=== PATIENT | male | born 1970 | race Caucasian/White ===

== ENCOUNTER → 2016-04-24 | Outpatient (CLI) | payer OTHER ==
[~2016-04-24] MED LIST: ATV/1 SL; MILKPOW PO; MISCCAP55 PO; MULT-281; OMEG10002 PO; RANI150T3 PO; TADA10TA PO
== END | disposition home or self-care (01) ==
LOC: C.LABBC 12:42
PROVIDERS: ATTEND Specialist
DX: N46.9 Male infertility, unspecified (principal)

== ENCOUNTER → 2017-02-26 | Outpatient (CLI) | payer OTHER ==
--- NOTE | 2017-02-26 17:35 | DIAGNOSTIC IMAGING REPORT ---
MRI OF THE RIGHT ELBOW WITHOUT IV CONTRAST CLINICAL HISTORY: Chronic intermittent right elbow pain, worsening over the past year. COMPARISON STUDY: No priors. TECHNIQUE: MRI of the right elbow is performed utilizing various T1 and T2-weighted sequences in the axial, sagittal, and coronal planes. IV contrast was not administered for this examination. Note that interpretation is suboptimal without plain film correlate. FINDINGS: Normal marrow signal intensity is preserved throughout the bony structures. There is no MRI evidence of fracture. No joint effusion is seen. The biceps tendon and the triceps tendon at its insertion are maintained. The radial collateral ligament and the ulnar collateral alignment appear intact. There is mild tendinopathy seen involving the common flexor and common extensor tendons at the humeral insertion with minimal surrounding edema. This is slightly greater medially than laterally. No significant tendinous tear is seen. Tiny marginal osteophytes are noted. The regional musculature is normal in bulk and signal intensity. No space-occupying lesion is suggested. IMPRESSION: 1. No bony abnormality is seen in the right elbow. 2. Findings suggest mild medial and lateral epicondylitis, greatest medially. Clinical correlation will be required. Dictated: 02/26/2017 4:40 PM Transcribed: 02/26/2017 5:34 PM [email or web address] Electronically signed by: Stanley Forman M.D. 02/26/2017 5:36 PM Dictated Date/Time: 02/26/2017 4:40 PM
== END | disposition home or self-care (01) ==
LOC: C.MRIBC 15:35
PROVIDERS: ATTEND Orthopaedic Surgery
DX: M25.521 Pain in right elbow (principal)

== ENCOUNTER 2021-09-27 13:51 | Inpatient (IN) ==
[2021-09-27 14:43] LABS: Hematocrit (blood only) 42.5 % (40.1-51.0); Hemoglobin 15.2 g/dl (14.0-18.0); Mean Corpuscular Hemoglobin 32.1 pg (25.0-34.0); Mean Corpuscular Hgb Conc 35.8 g/dL (32.0-36.0); Mean Corpuscular Volume 89.7 fL (80.0-100.0); Mean Platelet Volume 9.5 fL (9.4-12.4); Platelet Count 139 K/uL (130-400); RDW Coefficient of Variation 12.1 % (11.5-14.5); RDW Standard Deviation 39.8 fL (36.4-46.3); Red Blood Count 4.74 M/uL (4.63-6.08)
[2021-09-27 15:00] LABS: Basophils # (auto) 0.02 K/uL (0-0.2); Basophils % (auto) 0.4 %; Eosinophils # (auto) 0.02 K/uL (0-0.50); Eosinophils % (auto) 0.4 %; Immature Granulocytes # (auto) 0.01 K/uL (0.00-0.02); Immature Granulocytes % (auto) 0.2 %; Lymphocytes # (auto) 0.72 K/uL (1.2-3.4); Lymphocytes % (auto) 14.7 %; Monocytes # (auto) 0.48 K/uL (0.24-0.82); Monocytes % (auto) 9.8 %; Neutrophils # (auto) 3.65 K/uL (1.4-6.5); Neutrophils % (auto) 74.5 %
[2021-09-27 15:16] LABS: Albumin Globulin Ratio 1.5 (0.9-2); BUN Creatinine Ratio 15.6 (10-20); Calcium 8.9 mg/dl (8.5-10.1); Creatinine Clr Calc Pharmacy 105.7 ml/min; Est GFR (African American) 115.8 ml/min; Est GFR (Non-African American) 99.9 ml/min; Globulin 2.6 gm/dl (2.5-4.0); Potassium 3.6 mmol/L (3.5-5.1); Total Protein 6.6 gm/dl (6.0-8.3)
[2021-09-27] MEDS ORDERED: SODIUM CHLORIDE 0.9% 1000ML 1,000 ML IV ONE (16:26)
[2021-09-27] MEDS ORDERED: KETOROLAC TROMETHAMINE 15 MG/ML VIAL IV ONE (16:26)
[2021-09-27] MEDS ORDERED: PROMETHAZINE 12.5 MG/50.5 ML BAG IV STA (16:26)
[2021-09-27] MEDS ORDERED: diphenhydrAMINE 50 MG/ML VIAL IV STA (16:31)
--- NOTE | 2021-09-27 16:34 | Emergency Department Note ---
Impression & Plan Aseptic meningitis, Acute intractable headache ED Provider Note NAME: PK GORDON AGE: 51 SEX: M : 1970 ARRIVES VIA: Walk-In INFORMANT: Patient, ED PROVIDER(S): Santiago Sauceda DO CHIEF COMPLAINT: Fever HPI: The patient is a 51-year-old male who presented to the emergency department for an evaluation of headache. The patient states he has a frontal headache that goes into the back of his head. He states this is been ongoing and worsening since yesterday morning. He states it was not an acute thunderclap headache. He also has noticed a headache. His significant other presented with him and states he had a fever of 103 last evening. He has been taking NSAIDs with only minimal relief of his headache. He has noticed some improvement of his fever. He denies having any cough. He denies having any dysuria or frequency. He denies having any back pain. He does complain of severe headache because of the fever he called his doctor and was referred to the emergency department for further evaluation. The patient also has a daughter who is currently suffering with coxsackievirus. The patient also reports a rash over his trunk which is erythematous in nature. He denies having any vesicles or sore throat. He took a COVID test this morning which was negative. ROS: See above HPI for pertinent positives & negatives. A total of 10 systems reviewed and were otherwise negative. PAST MEDICAL HISTORY: See Below PAST SURGICAL HISTORY: See Below FAMILY HISTORY: See Below SOCIAL HISTORY: See Below HOME MEDICATIONS: See Below ALLERGIES: See Below VITALS: See Below PHYSICAL EXAMINATION: GENERAL: Patient is awake and alert. He is uncomfortable appearing. He appears to be in pain. EYES: The conjunctivae are clearinjected bilaterally. The pupils are round and reactive. EARS, NOSE, MOUTH AND THROAT: The nose is without any evidence of any deformity. Mucous membranes are moist. There is no erythema or vesicles noted in the oropharynx. NECK: The neck is nontender and supple. RESPIRATORY: Normal respiratory effort is noted there is no evidence of wheezing rhonchi or rales CARDIOVASCULAR: Regular rate and rhythm noted there no murmurs rubs or gallops normal S1 normal S2. GASTROINTESTINAL: The abdomen is soft. Abdomen is nontender. MUSCULOSKELETAL/EXTREMITIES: There is no evidence of gross deformity full range of motion is noted in the hips and shoulders. SKIN: There is a blanching rash noted over the entire trunk. It is not raised or palpable. NEUROLOGIC: Patient is awake alert and oriented x3 strength is symmetric patellar reflexes are 2+ bilaterally MEDICAL DECISION MAKING: The patient is a 51-year-old male who presented to the emergency department for an evaluation of headache and fever. The patient was exposed to coxsackievirus by his daughter. He started noticing fever and headache. The patient's head ache was very severe and he was treated with IV pain medication in the emergency department. He was reevaluated multiple times. The patient did have a lumbar puncture to evaluate for meningitis. His CSF did show an elevation in the white blood cell count. He was treated with IV fluids. I discussed the patient's condition with the on-call [facility] hospitalist group. They have agreed to evaluate the patient in the emergency department for further management and disposition. Likely this appears to be consistent with aseptic meningitis however given the patient's intractable headache I do feel he would do well managed as an inpatient. Triage Nursing notes reviewed. Prior medical records reviewed Vital Signs: reviewed and remarkable for no significant abnormalities Differential diagnosis: Migraine headache, meningitis, sinusitis, CO exposure, ICH, SAH, infection, tumor, headache, sinus thrombosis, arterial dissection, as well as other pathologies. ER treatment provided: See below Diagnostics interpreted by me: ECG: EKG was obtained in the emergency department. My interpretation is normal sinus rhythm at 71 bpm. There is no ectopy. There is no acute ST segment abnormalities noted. No previous tracing was available. Cardiac Monitoring: An order was placed for continuous cardiac monitoring. The monitor shows a rate of 63 bpm with sinus rhythm. Laboratory studies: As stated above and show below. Imaging studies: See below Consultation(s): I discussed this case with Dr. Amaya who is on-call for the [facility] hospitalist group. ED COURSE: Procedures: Lumbar Puncture Indication: Fever e and headache. Verbal consent was obtained after the risks and benefits were explained, includ ing but not limited to headache, bleeding/clotting, scarring, infection, pain, and bone/joint/nerve damage. At this time, the risks of the procedure are less than the risks of NOT performing the procedure. A time out was taken and the correct patient and site identified. The patient was placed in the seated position and the back was prepped with betadine and draped in the standard fashion. The L3 intervertebral space was identified, anesthetized locally with 1% lidocaine without epinephrine, and the spinal needle was inserted through the skin with the bevel parallel to the dural fibers. The needle was carefully advanced into the lumbar cistern and 4 tubes of clear CSF was obtained. The stylet was replaced and the needle was removed. A bandaid was placed and the patient was placed in the supine position. The patient tolerated the procedure well and there were no complications. Critical Care: None Past Med/Surg History Medical History Acid reflux History of colon polyps TMJ disease Surgical History H/O foot surgery 2014. Dr Atkinson History of arthroscopy of left knee History of colonoscopy History of facial surgery RECONSTRUCTION AFTER SKIING INJURY History of wisdom tooth extraction Nausea and vomiting after administration of anesthetic agent Status post orchiopexy Family History Father Colon cancer Diabetes Malignant neoplasm of bladder Nephrolithiasis Other No family history of adverse response to anesthesia Denies family history of Ovarian cancer Prostate cancer Breast cancer Lung cancer Social History Smoking Status: Never smoker Second Hand Exposure: No; Hx Alcohol Use: Yes Alcohol type: beer, wine and hard liquor Hx Substance Use: No Preferred Language: Arabic Communication Ability: Effective Magazine Hand Required: No Beliefs That Will Affect Care: None marital status: Current Living Situation: Family Current Living Situation Comment: Lives with and children Feels Safe at Home: No Is there a partner from a previous relationship who is making you feel unsafe now?: No Childhood Exposure to Second-Hand Smoke: No Assistive Devices: None Allergies Allergies Allergy/AdvReac Type Severity Reaction Status Date / Time No Known Allergies Allergy Unknown Verified 09/27/21 17:26 Home Meds Home Medications Medication Instructions Recorded Confirmed tadalafil 5 mg tablet 5 mg PO DAILY 08/12/19 09/27/21 ibuprofen 200 mg tablet (Advil) 800 mg PO .Q5-6HRS PRN Fever Or 09/27/21 09/27/21 Pain Previous Rx's Medication Instructions Recorded benzonatate 200 mg capsule 200 mg PO TID PRN cough #30 caps 06/08/21 esomeprazole magnesium 20 mg 20 mg PO DAILY PRN Acid Reflux #30 06/08/21 capsule,delayed release (Nexium) caps lorazepam 1 mg tablet (Ativan) 1 mg PO BID PRN sleep #20 tabs 06/08/21 ondansetron 4 mg disintegrating 4 mg PO Q12H PRN nausea and 09/28/21 tablet vomiting 10 days #20 tabs sodium di- and 2 tab PO Q4H #6 tabs 09/28/21 monophosphate-potassium phos monobasic 250 mg tablet (Phospha 250 Neutral) Results & Data (ED) Vital Signs Vital Signs - 24 hr 09/27/21 16:48 09/27/21 17:14 09/27/21 19:58 Temperature 37.3 C Temperature Source Oral Pulse Rate 60 Pulse Rate [Finger] 59 L 75 Pulse Rhythm [Finger] Regular Pulse Strength [Finger] Normal Respiratory Rate 16 16 18 Respiratory Effort / Characteristics Non-Labored Spontaneous Labored Respiratory Depth Normal Blood Pressure [Left Arm] 146/94 H 132/78 Blood Pressure Mean [Left Arm] 111 96 Pulse Oximetry 95 100 98 Oxygen Delivery Method Room Air Room Air Home Medications Current Medication List: was personally reviewed by me Laboratory Data Attestation: I reviewed the patient's lab results. Result diagrams: 09/28/21 10:23 09/28/21 10:23 Lab Results 09/27/21 09/27/21 09/27/21 Range/Units 14:16 14:16 14:16 WBC 4.90 (4.8-10.8) K/ul RBC 4.74 (4.63-6.08) M/uL Hgb 15.2 (14.0-18.0) g/dl Hct 42.5 (40.1-51.0) % MCV 89.7 (80.0-100.0) fL MCH 32.1 (25.0-34.0) pg MCHC 35.8 (32.0-36.0) g/dL RDW Std Deviation 39.8 (36.4-46.3) fL RDW Coeff of Bryan 12.1 (11.5-14.5) % Plt Count 139 (130-400) K/uL MPV 9.5 (9.4-12.4) fL Immature Gran % (Auto) 0.2 % Neut % (Auto) 74.5 % Lymph % (Auto) 14.7 % Summit % (Auto) 9.8 % Eos % (Auto) 0.4 % Baso % (Auto) 0.4 % Neut # (Auto) 3.65 (1.4-6.5) K/uL Lymph # (Auto) 0.72 L (1.2-3.4) K/uL Summit # (Auto) 0.48 (0.24-0.82) K/uL Eos # (Auto) 0.02 (0-0.50) K/uL Baso # (Auto) 0.02 (0-0.2) K/uL Immature Gran # (Auto) 0.01 (0.00-0.02) K/uL Sodium 139 (136-145) mmol/L Potassium 3.6 (3.5-5.1) mmol/L Chloride 105 (98-107) mmol/L Carbon Dioxide 27 (21-32) mmol/L Anion Gap 7 (3-11) BUN 14 (6-23) mg/dl Creatinine 0.90 (0.6-1.4) mg/dl Est Cr Clr Drug Dosing 105.7 ml/min Est GFR ( Amer) 115.8 ml/min Est GFR (Non-Af Amer) 99.9 ml/min BUN/Creatinine Ratio 15.6 (10-20) Glucose 118 H (70-99(Fasting)) mg/dl Calcium 8.9 (8.5-10.1) mg/dl Total Bilirubin 1.0 (0.2-1.0) mg/dl AST 30 (13-39) U/L ALT 33 (7-52) U/L Alkaline Phosphatase 80 (34-104) U/L Total Protein 6.6 (6.0-8.3) gm/dl Albumin 4.0 (3.4-5.0) gm/dl Globulin 2.6 (2.5-4.0) gm/dl Albumin/Globulin Ratio 1.5 (0.9-2) Urine Color Urine Appearance (Clear) Urine pH (4.5-7.5) Ur Specific Perry (1.000-1.030) Urine Protein (Negative) Urine Glucose (UA) (Negative) Urine Ketones (Negative) Urine Blood (Negative) Urine Nitrite (Negative) Urine Bilirubin (Negative) Urine Urobilinogen (Negative) Ur Leukocyte Esterase (Negative) Fluid Comment CSF Appearance CSF Color Xanthrochromic CSF WBC (0-5) /uL CSF RBC (0-) /uL CSF Cell Count Tube # CSF Mononuclear WBCs % CSF Polynuclear WBCs % CSF Chemistry Tube # CSF Glucose (40-70) mg/dl CSF Total Protein (15-45) mg/dl Lyme Disease IgG Ab Negative (Negative) Lyme Disease IgM Ab Negative (Negative) SARS-CoV-2, RNA, NAAT (NEGATIVE) 09/27/21 09/27/21 09/27/21 Range/Units 17:04 17:47 17:47 WBC (4.8-10.8) K/ul RBC (4.63-6.08) M/uL Hgb (14.0-18.0) g/dl Hct (40.1-51.0) % MCV (80.0-100.0) fL MCH (25.0-34.0) pg MCHC (32.0-36.0) g/dL RDW Std Deviation (36.4-46.3) fL RDW Coeff of Bryan (11.5-14.5) % Plt Count (130-400) K/uL MPV (9.4-12.4) fL Immature Gran % (Auto) % Neut % (Auto) % Lymph % (Auto) % Summit % (Auto) % Eos % (Auto) % Baso % (Auto) % Neut # (Auto) (1.4-6.5) K/uL Lymph # (Auto) (1.2-3.4) K/uL Summit # (Auto) (0.24-0.82) K/uL Eos # (Auto) (0-0.50) K/uL Baso # (Auto) (0-0.2) K/uL Immature Gran # (Auto) (0.00-0.02) K/uL Sodium (136-145) mmol/L Potassium (3.5-5.1) mmol/L Chloride (98-107) mmol/L Carbon Dioxide (21-32) mmol/L Anion Gap (3-11) BUN (6-23) mg/dl Creatinine (0.6-1.4) mg/dl Est Cr Clr Drug Dosing ml/min Est GFR ( Amer) ml/min Est GFR (Non-Af Amer) ml/min BUN/Creatinine Ratio (10-20) Glucose (70-99(Fasting)) mg/dl Calcium (8.5-10.1) mg/dl Total Bilirubin (0.2-1.0) mg/dl AST (13-39) U/L ALT (7-52) U/L Alkaline Phosphatase (34-104) U/L Total Protein (6.0-8.3) gm/dl Albumin (3.4-5.0) gm/dl Globulin (2.5-4.0) gm/dl Albumin/Globulin Ratio (0.9-2) Urine Color Yellow Urine Appearance Clear (Clear) Urine pH 6.5 (4.5-7.5) Ur Specific Perry 1.024 (1.000-1.030) Urine Protein Negative (Negative) Urine Glucose (UA) Negative (Negative) Urine Ketones 1+ H (Negative) Urine Blood Negative (Negative) Urine Nitrite Negative (Negative) Urine Bilirubin Negative (Negative) Urine Urobilinogen Negative (Negative) Ur Leukocyte Esterase Negative (Negative) Fluid Comment CSF Appearance Clear CSF Color Colorless Xanthrochromic No xanthochromia CSF WBC 32 H* (0-5) /uL CSF RBC 0 (0-) /uL CSF Cell Count Tube # 3 CSF Mononuclear WBCs 47.0 % CSF Polynuclear WBCs 53.0 % CSF Chemistry Tube # 1 CSF Glucose 60 (40-70) mg/dl CSF Total Protein 40.2 (15-45) mg/dl Lyme Disease IgG Ab (Negative) Lyme Disease IgM Ab (Negative) SARS-CoV-2, RNA, NAAT (NEGATIVE) 09/27/21 Range/Units 20:16 WBC (4.8-10.8) K/ul RBC (4.63-6.08) M/uL Hgb (14.0-18.0) g/dl Hct (40.1-51.0) % MCV (80.0-100.0) fL MCH (25.0-34.0) pg MCHC (32.0-36.0) g/dL RDW Std Deviation (36.4-46.3) fL RDW Coeff of Bryan (11.5-14.5) % Plt Count (130-400) K/uL MPV (9.4-12.4) fL Immature Gran % (Auto) % Neut % (Auto) % Lymph % (Auto) % Summit % (Auto) % Eos % (Auto) % Baso % (Auto) % Neut # (Auto) (1.4-6.5) K/uL Lymph # (Auto) (1.2-3.4) K/uL Summit # (Auto) (0.24-0.82) K/uL Eos # (Auto) (0-0.50) K/uL Baso # (Auto) (0-0.2) K/uL Immature Gran # (Auto) (0.00-0.02) K/uL Sodium (136-145) mmol/L Potassium (3.5-5.1) mmol/L Chloride (98-107) mmol/L Carbon Dioxide (21-32) mmol/L Anion Gap (3-11) BUN (6-23) mg/dl Creatinine (0.6-1.4) mg/dl Est Cr Clr Drug Dosing ml/min Est GFR ( Amer) ml/min Est GFR (Non-Af Amer) ml/min BUN/Creatinine Ratio (10-20) Glucose (70-99(Fasting)) mg/dl Calcium (8.5-10.1) mg/dl Total Bilirubin (0.2-1.0) mg/dl AST (13-39) U/L ALT (7-52) U/L Alkaline Phosphatase (34-104) U/L Total Protein (6.0-8.3) gm/dl Albumin (3.4-5.0) gm/dl Globulin (2.5-4.0) gm/dl Albumin/Globulin Ratio (0.9-2) Urine Color Urine Appearance (Clear) Urine pH (4.5-7.5) Ur Specific Perry (1.000-1.030) Urine Protein (Negative) Urine Glucose (UA) (Negative) Urine Ketones (Negative) Urine Blood (Negative) Urine Nitrite (Negative) Urine Bilirubin (Negative) Urine Urobilinogen (Negative) Ur Leukocyte Esterase (Negative) Fluid Comment CSF Appearance CSF Color Xanthrochromic CSF WBC (0-5) /uL CSF RBC (0-) /uL CSF Cell Count Tube # CSF Mononuclear WBCs % CSF Polynuclear WBCs % CSF Chemistry Tube # CSF Glucose (40-70) mg/dl CSF Total Protein (15-45) mg/dl Lyme Disease IgG Ab (Negative) Lyme Disease IgM Ab (Negative) SARS-CoV-2, RNA, NAAT NEGATIVE (NEGATIVE) Administered Medications Discontinued Medications Dexamethasone Sodium Phosphate (DexamethasonePf 10 Mg/Ml Vial) 10 mg IV NOW ONE Stop: 09/27/21 20:05 Last Admin: 09/27/21 20:12 Dose: 10 mg Documented By: JUAN Diphenhydramine HCl (Diphenhydramine 50 Mg/Ml Vial) 25 mg IV NOW STA Stop: 09/27/21 16:32 Last Admin: 09/27/21 16:55 Dose: 25 mg Documented By: MACEY Hydromorphone HCl (Hydromorphone Inj 0.5 Mg/0.5 Ml Syr) 0.5 mg IV NOW STA Stop: 09/27/21 20:05 Last Admin: 09/27/21 20:12 Dose: 0.5 mg Documented By: JUAN Sodium Chloride (Nss 1000ml) 1,000 mls @ 999 mls/hr IV .[id number] ONE Stop: 09/27/21 17:26 Last Infusion: 09/27/21 18:49 Dose: 0 mls/hr Documented By: Admin: 09/27/21 16:34 Dose: 999 mls/hr Documented By: MACEY Promethazine HCl (Phenergan) 12.5 mg in 50.5 mls @ 202 mls/hr IV NOW STA Stop: 09/27/21 16:40 Last Infusion: 09/27/21 18:01 Dose: 0 mls/hr Documented By: Admin: 09/27/21 16:34 Dose: 202 mls/hr Documented By: MACEY Sodium Chloride (Nss 1000ml) 1,000 mls @ 80 mls/hr IV .[id number] LORENA Stop: 09/29/21 02:19 Last Admin: 09/28/21 14:16 Dose: 80 mls/hr Documented By: Infusion: 09/28/21 14:16 Dose: 80 mls/hr Documented By: Admin: 09/28/21 01:57 Dose: 80 mls/hr Documented By: Ketorolac Tromethamine (Ketorolac Tromethamine 15 Mg/Ml Vial) 10 mg IV NOW ONE Stop: 09/27/21 16:27 Last Admin: 09/27/21 16:33 Dose: 10 mg Documented By: MACEY Ketorolac Tromethamine (Ketorolac Tromethamine 15 Mg/Ml Vial) 15 mg IV Q6H PRN PRN Reason: Moderate pain (5-7) Stop: 10/03/21 01:20 Last Admin: 09/28/21 01:54 Dose: 15 mg Documented By: Lidocaine/Epinephrine (Lido/Epinephrine/Sod Bicarb 20 Ml Vial) Confirm Administered Dose 20 ml INFIL .STK-MED ONE Stop: 09/27/21 17:39 Last Admin: 09/27/21 18:01 Dose: 20 ml Documented By: MACEY Melatonin (Melatonin 3 Mg Tab) 3 mg PO HS PRN PRN Reason: Sleep Stop: 10/28/21 01:20 Last Admin: 09/28/21 02:03 Dose: 3 mg Documented By: Morphine Sulfate (Morphine Sulfate 4 Mg/Ml 1 Ml Carp\Vial) 4 mg IV NOW STA Stop: 09/27/21 18:26 Last Admin: 09/27/21 18:29 Dose: 4 mg Documented By: MACEY Ondansetron HCl (Ondansetron Inj 2 Mg/Ml 2 Ml Vial) 4 mg IV NOW STA Stop: 09/27/21 18:26 Last Admin: 09/27/21 18:29 Dose: 4 mg Documented By: MACEY Imaging Data Radiologist's Impression: Head CT 09/27/21 16:26 CT head/brain wo con CLINICAL HISTORY: Headache COMPARISON STUDY: No previous studies for comparison. CT DOSE: 638.56 mGycm TECHNIQUE: Standard CT of the Brain was performed without IV contrast. A dose lowering technique was utilized adhering to the principles of ALARA. FINDINGS: Extraaxial space: There is no evidence for subdural hematoma. There are no extra-axial fluid collections. Ventricles and cisterns: The ventricles are normal in size and configuration. There is no evidence for midline shift or mass effect. Parenchyma: There is no subarachnoid or intraparenchymal hemorrhage. There is no evidence for an acute infarct or cerebral edema. There is homogeneous attenuation of the brain parenchyma. There are no gross mass lesions. Osseous structures: There is no evidence for an acute fracture. The visualized paranasal sinuses are clear. The mastoid air cells are clear bilaterally. Soft tissues: There is no evidence for focal soft tissue swelling. IMPRESSION: 1. No acute intracerebral pathology. ACT 112: Negative or not required by law. Electronically signed by: Ottoniel Hastings M.D. 09/27/2021 4:46 PM Discharge Plan Visit Data Chief Complaint: Fever Stated Complaint: FEVER, REF BY DR, NAUSEA, HEADACHE ED Provider: Santiago Sauceda Discharge Problem: Aseptic meningitis, Acute intractable headache Patient Disposition: Admitted As Inpatient Discharge Instructions Interventions: ED Discharge Assessment Last Done: 09/28/21 00:55
--- NOTE | 2021-09-27 16:48 | CT Scan Report ---
CT head/brain wo con CLINICAL HISTORY: Headache COMPARISON STUDY: No previous studies for comparison. CT DOSE: 638.56 mGycm TECHNIQUE: Standard CT of the Brain was performed without IV contrast. A dose lowering technique was utilized adhering to the principles of ALARA. FINDINGS: Extraaxial space: There is no evidence for subdural hematoma. There are no extra-axial fluid collecti ons. Ventricles and cisterns: The ventricles are normal in size and configuration. There is no evidence fo r midline shift or mass effect. Parenchyma: There is no subarachnoid or intraparenchymal hemorrhage. There is no evidence for an acut e infarct or cerebral edema. There is homogeneous attenuation of the brain parenchyma. There are no g ross mass lesions. Osseous structures: There is no evidence for an acute fracture. The visualized paranasal sinuses are clear. The mastoid air cells are clear bilaterally. Soft tissues: There is no evidence for focal soft tissue swelling. IMPRESSION: 1. No acute intracerebral pathology. ACT 112: Negative or not required by law. Electronically signed by: Ottoniel Hastings M.D. 09/27/2021 4:46 PM
[2021-09-27 17:35] LABS: Appearance Urine Clear (Clear); Bilirubin Urine Negative (Negative); Blood Urine Negative (Negative); Color Urine Yellow; Glucose Urine UA Negative (Negative); Ketones Urine 1+ (Negative); Leukocyte Esterase Urine Negative (Negative); Nitrite Urine Negative (Negative); Protein Urine Negative (Negative); Specific Gravity Urine 1.024 (1.000-1.030); Urobilinogen Urine Negative (Negative); pH Urine 6.5 (4.5-7.5)
[2021-09-27] MEDS ORDERED: LIDO/EPINEPHRINE/SOD BICARB 20 ML VIAL INFIL ONE (17:38)
[2021-09-27] MEDS ORDERED: ONDANSETRON INJ 2 MG/ML 2 ML VIAL IV STA (18:25)
[2021-09-27] MEDS ORDERED: MoRPHine SULFATE 4 MG/ML 1 ML CARP\\VIAL IV STA (18:25)
[2021-09-27 18:29] LABS: Total Protein CSF 40.2 mg/dl (15-45)
[2021-09-27 19:38] LABS: Appearance CSF Clear; CSF Count Tube # 3; CSF Xanthrochromic No xanthochromia; Color CSF Colorless; Red Blood Cell CSF (A) 0 /uL (0-)
[2021-09-27 19:40] LABS: White Blood Cell CSF (A) 32 /uL (0-5)
[2021-09-27] MEDS ORDERED: dexAMETHasone**PF** 10 MG/ML VIAL IV ONE (20:04)
[2021-09-27] MEDS ORDERED: HYDROmorphone INJ 0.5 MG/0.5 ML SYR IV STA (20:04)
[2021-09-27 21:03] LABS: Lyme Ab IgG w/WB Rflx Negative (Negative); Lyme Ab IgM w/WB Rflx Negative (Negative)
--- NOTE | 2021-09-27 21:20 | History & Physical Report ---
Date of Service September 27, 2021 Assessment & Plan (1) Coxsackie meningitis: Plan: 51yo male with a history of TMJ dysfunction and GERD presents with a two-day history of headache, fever (Tmax 103), rash, and stiff neck suspected secondary to aseptic (coxsackievirus) meningitis. 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 Patient with a two-day history of headache, fever (Tmax 103.0), rash, and stiff neck Recent exposure to coxsackievirus (patient's daughter was diagnosed with Kawasaki disease last week) VSS on arrival, initial bloodwork unremarkable - WBC, Hgb, and platelets wnl, no electrolyte abnormalities, LFTs wnl ED course noted in HPI CT head negative for acute intracranial pathology LP in ED: elevated WBCs (32; PMN-predominant at 53%), no increased glucose or total protein, opening pressure unknown CSF biofire positive for enterovirus, negative for all else tested Blood cultures pending, CSF gram stain pending Symptoms, recent exposure, LP, and CSF biofire all consistent with aseptic meningitis due to coxsackievirus Continue supportive care, no overt sign of bacterial superinfection, antibiotic/antiviral coverage indicated Headache pain control plan: APAP 1000mg PO q8h prn mild pain Ketorolac 15mg IV q6h prn moderate pain Tramadol 50mg PO q4h prn severe pain Continue NSS @ 80mL/hr (x2 bags ordered) Repeat CBC in AM GERD: continue home omeprazole FEN: regular diet, NSS @ 80mL/hr (x2 bags ordered) Code status: full code DVT ppx: SCDs Dispo: med/surg (2) Gastroesophageal reflux disease: History of Present Illness Primary Care Provider: Nathan Marrero DO 51yo male with a history of TMJ dysfunction and GERD presents with a two-day history of headache, fever (Tmax 103), rash, and stiff neck.Symptoms began gradually. Fever improved with ibuprofen. Patient's headache is primarily frontal bilaterally with some radiation to the back of his head. Started gradually and became severe this afternoon. Also notes mild neck stiffness which improved with ibuprofen. Also notes a faint red rash on his trunk and arms without pain, swelling, or exudate. Patient denies chills, congestion, sore throat, CP, palpitations, SOB, edema, abdominal pain, nausea, vomiting, dysuria, back pain, hematochezia, melena, dizziness, numbness, tingling, or other symptoms. Recent travel is limited to going to the beach in [place] last week. Of note, patient's daughter was diagnosed last week with Kawasaki disease. Upon arrival, vitals were unremarkable - BP well-controlled, no tachycardia or tachypnea, patient afebrile, spO2 adequate on room air. Initial labs were unremarkable - no leukocytosis or leukopenia, no anemia, no thrombocytopenia or thrombocytosis, no electrolyte abnormalities. UA not infected. Due to concern for meningitis, an LP was performed which was notable for elevated WBC (32), PMN-predominant (53%), without increased glucose or total protein. CSF biofire was positive only for enterovirus. In the ED, patient received NSS 1L bolus (x1), morphine IV 4mg (x1), dilaudid IV 0.5mg (x1), dexamethasone IV 10mg (x1), ketorolac IV 10mg (x1), zofran IV 4mg (x1), promethazine IV 12.5mg (x1), and diphenhydramine IV 25mg (x1), which led to a significant improvement in headache pain. Surrogate decision-maker in case of an emergency: Palak Martinez (cell: [phone]) Allergies Allergy/AdvReac Type Severity Reaction Status Date / Time No Known Allergies Allergy Unknown Verified 09/27/21 17:26 Home Medications Medication Instructions Recorded Confirmed Type tadalafil 5 mg tablet 5 mg PO DAILY 08/12/19 09/27/21 History benzonatate 200 mg capsule 200 mg PO TID PRN cough #30 caps 06/08/21 09/27/21 Rx esomeprazole magnesium 20 mg 20 mg PO DAILY PRN Acid Reflux #30 06/08/21 09/27/21 Rx capsule,delayed release (Nexium) caps lorazepam 1 mg tablet (Ativan) 1 mg PO BID PRN sleep #20 tabs 06/08/21 09/27/21 Rx ibuprofen 200 mg tablet (Advil) 800 mg PO .Q5-6HRS PRN Fever Or 09/27/21 09/27/21 History Pain Past Med/Surg History Medical History Acid reflux History of colon polyps TMJ disease Surgical History H/O foot surgery 2014. Dr Atkinson History of arthroscopy of left knee History of colonoscopy History of facial surgery RECONSTRUCTION AFTER SKIING INJURY History of wisdom tooth extraction Nausea and vomiting after administration of anesthetic agent Status post orchiopexy Family History Father Colon cancer Diabetes Malignant neoplasm of bladder Nephrolithiasis Other No family history of adverse response to anesthesia Denies family history of Ovarian cancer Prostate cancer Breast cancer Lung cancer Social History Smoking Status: Never smoker Second Hand Exposure: No; Do You Dip or Chew Tobacco: No; Tobacco Cessation Education Requested by Patient: No Hx Alcohol Use: Yes Alcohol type: beer, wine and hard liquor Hx Substance Use: No Preferred Language: Telugu Communication Ability: Effective Responder Required: No Beliefs That Will Affect Care: None marital status: Current Living Situation: Family Current Living Situation Comment: Lives with and children Other Information That Helps Us Care for You: No Feels Safe at Home: Yes Safety Concerns: Feels Safe At This Time Childhood Exposure to Second-Hand Smoke: No Assistive Devices: None Physical Exam Physical Exam: Constitutional: well-appearing, no acute distress HEENT: NCAT, no conjunctival injection, no scleral icterus, neck ROM intact, no nuchal rigidity CV: regular rhythm, no murmur appreciated, extremities well-perfused, no LE edema Resp: CTABL, no wheezes/rales/rhonchi appreciated, no increased work of breathing GI: soft, nondistended, nontender, BS normoactive MSK: no gross deformities appreciated, no increased head/neck pain with passive leg raise Skin: mild blanching erythematous macular rash on trunk and arms bilaterally, no edema or exudate, no increased warmth to touch, nontender Neuro: alert, oriented, CN2-12 intact, strength 5/5 in UE and LE bilaterally, no focal neurologic deficit appreciated Results & Data Results & Data ([facility]) Vital Signs (Past 12 Hours) Vital Signs Temp Pulse Pulse Resp BP BP Pulse Ox 09/27/21 19:58 37.3 C 75 18 132/78 98 09/27/21 17:14 59 L 16 146/94 H 100 09/27/21 16:48 60 16 95 09/27/21 13:57 36.6 C 82 18 136/74 94 O2 Del Method 09/27/21 19:58 Room Air 09/27/21 17:14 09/27/21 16:48 Room Air 09/27/21 13:57 Room Air Supervising Physician Co-Signing Physician Notes I supervised Chance Merida MD on this admission. I interviewed and examined the patient independently of him. The plan is as written in the note except for any following changes/exceptions: None 51yo M w/ no major PMH presents with concern for meningitis. Daughter recently had Coxsackie virus, and he reports headache and neck stiffness. Family member works with physician who advised evaluation in the ER. LP showed mild WBCs, consistent with aseptic meningitis, and BioFire PCR confirms CSF Enterovirus (of which Coxsackie is one). Seen at approx. 4:45am, and pain is improving at this time. Defer abx. Treat conservatively. 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
[2021-09-27 21:32] LABS: Cryptococcus neoformans/ga PCR Not Detected (NotDetected); Cytomegalovirus PCR Not Detected (NotDetected); Escherichia coli K1 PCR Not Detected (NotDetected); Haemophilius influenzae PCR Not Detected (NotDetected); Herpes Simplex Virus 1 PCR Not Detected (NotDetected); Herpes Simplex Virus 2 PCR Not Detected (NotDetected); Human Herpes Virus 6 PCR Not Detected (NotDetected); Human Parechovirus PCR Not Detected (NotDetected); Listeria monocytogenes PCR Not Detected (NotDetected); Neisseria meningitidis PCR Not Detected (NotDetected); Streptococcus agalactiae PCR Not Detected (NotDetected); Streptococcus pneumoniae PCR Not Detected (NotDetected); Varicella Zoster Virus PCR Not Detected (NotDetected)
[2021-09-27 21:49] LABS: Enterovirus PCR DETECTED (NotDetected)
[2021-09-28] MEDS ORDERED: KETOROLAC TROMETHAMINE 15 MG/ML VIAL IV PRN (01:21)
[2021-09-28] MEDS ORDERED: ONDANSETRON INJ 2 MG/ML 2 ML VIAL IV PRN (01:21)
[2021-09-28] MEDS ORDERED: MELATONIN 3 MG TAB PO PRN (01:21)
[2021-09-28] MEDS ORDERED: traMADol HCL 50 MG TABLET PO PRN (01:21)
[2021-09-28] MEDS ORDERED: ACETAMINOPHEN 500 MG TAB PO PRN (01:21)
[2021-09-28] MEDS ORDERED: PANTOprazole 40 MG TAB PO PRN (01:21)
[2021-09-28] MEDS: SODIUM CHLORIDE 0.9% 1000ML 1,000 ML IV SCH ×2 (01:57→14:16)
--- NOTE | 2021-09-28 05:20 | Billing Data ---
Date of Service September 28, 2021 Coding Level of Care Code 67063 Initial Inpt Care Lvl 3
--- NOTE | 2021-09-28 06:35 | Electrocardiogram Report ---
Test Reason : Blood Pressure : / mmHG Vent. Rate : 071 BPM Atrial Rate : 071 BPM P-R Int : 144 ms QRS Dur : 088 ms QT Int : 384 ms P-R-T Axes : 065 021 033 degrees QTc Int : 417 ms Normal sinus rhythm Normal ECG No previous ECGs available Confirmed by Les Hinson ([id number]) on 09/28/2021 6:35:17 AM Referred By: Confirmed By:Les Hinson
[2021-09-28] MEDS ORDERED: LORazepam 0.5 MG in SYRINGE 0.25 ML IV PRN (10:34)
[2021-09-28 10:52] LABS: Hematocrit (blood only) 41.5 % (40.1-51.0); Hemoglobin 14.4 g/dl (14.0-18.0); Mean Corpuscular Hemoglobin 31.8 pg (25.0-34.0); Mean Corpuscular Hgb Conc 34.7 g/dL (32.0-36.0); Mean Corpuscular Volume 91.6 fL (80.0-100.0); Mean Platelet Volume 9.8 fL (9.4-12.4); Platelet Count 149 K/uL (130-400); RDW Coefficient of Variation 11.9 % (11.5-14.5); RDW Standard Deviation 39.9 fL (36.4-46.3); Red Blood Count 4.53 M/uL (4.63-6.08); White Blood Count 6.43 K/ul (4.8-10.8)
--- NOTE | 2021-09-28 10:53 | Discharge Summary ---
Date of Service September 28, 2021 Admission HPI Per Admitting Provider 51yo male with a history of TMJ dysfunction and GERD presents with a two-day history of headache, fever (Tmax 103), rash, and stiff neck.Symptoms began gradually. Fever improved with ibuprofen. Patient's headache is primarily frontal bilaterally with some radiation to the back of his head. Started gradually and became severe this afternoon. Also notes mild neck stiffness which improved with ibuprofen. Also notes a faint red rash on his trunk and arms without pain, swelling, or exudate. Patient denies chills, congestion, sore throat, CP, palpitations, SOB, edema, abdominal pain, nausea, vomiting, dysuria, back pain, hematochezia, melena, dizziness, numbness, tingling, or other symptoms. Recent travel is limited to going to the beach in [place] last week. Of note, patient's daughter was diagnosed last week with Kawasaki disease. Upon arrival, vitals were unremarkable - BP well-controlled, no tachycardia or tachypnea, patient afebrile, spO2 adequate on room air. Initial labs were unremarkable - no leukocytosis or leukopenia, no anemia, no thrombocytopenia or thrombocytosis, no electrolyte abnormalities. UA not infected. Due to concern for meningitis, an LP was performed which was notable for elevated WBC (32), PMN-predominant (53%), without increased glucose or total protein. CSF biofire was positive only for enterovirus. In the ED, patient received NSS 1L bolus (x1), morphine IV 4mg (x1), dilaudid IV 0.5mg (x1), dexamethasone IV 10mg (x1), ketorolac IV 10mg (x1), zofran IV 4mg (x1), promethazine IV 12.5mg (x1), and diphenhydramine IV 25mg (x1), which led to a significant improvement in headache pain. Surrogate decision-maker in case of an emergency: Palak Martinez (cell: [phone]) Admission Exam Per Admitting Provider Constitutional: well-appearing, no acute distress HEENT: NCAT, no conjunctival injection, no scleral icterus, neck ROM intact, no nuchal rigidity CV: regular rhythm, no murmur appreciated, extremities well-perfused, no LE edema Resp: CTAB, no wheezes/rales/rhonchi appreciated, no increased work of breathing GI: soft, nondistended, nontender, BS normoactive MSK: no gross deformities appreciated, no increased head/neck pain with passive leg raise Skin: mild blanching erythematous macular rash on trunk and arms bilaterally, no edema or exudate, no increased warmth to touch, nontender Neuro: alert, oriented, CN2-12 intact, strength 5/5 in UE and LE bilaterally, no focal neurologic deficit appreciated Principal Diagnosis Coxsackie Meningitis Discharge Exam Gen: NAD, alert, interactive HEENT: PEERL, EOMI, NCAT, no pain with eye movement or nystagmus, no TTP of sinuses, no pain with flexion/rotation/extension of head Resp: Non-labored, no wheezing/rhonchi/rales, CTAB CV: RRR, normal S1/S2, no M/R/G Extr: cap. Refill <2s, 2+ dp bilaterally, full range of motion and 5/5 strength bilaterally Spine: No pain with flexion or palpation Skin: mild, small, red painless, grouped vesicles, scattered across patient's trunk Discharge Data Allergies Allergy/AdvReac Type Severity Reaction Status Date / Time No Known Allergies Allergy Unknown Verified 09/27/21 17:26 Consultations 09/27/21 20:21 ED Decision to Admit Stat Procedures Performed Lumbar Puncture 09/27/21 Elevated WBC (32), PMN predominance 53%, no increased glucose, no increased total protein, unknown opening pressure Ordered Studies 09/27/21 16:26 CT head/brain wo con Stat Negative for acute intracranial pathology Diabetes Follow up None. Hospital Course (1) Coxsackie meningitis: Cornelio Martinez, a 51 year old male with history of TMJ and GERD, presented 09/27 with a two day history of headache, fever (Tmax 103), an abdominal rash, and neck stiffness. Patient's daughter was diagnosed with Coxsackie virus last week. His presenting vitals and blood work were unremarkable. Patient's pain was controlled in the emergency department - he noted most significant improvement with steroid administration. Patient received a Head CT which was negative for acute intracranial pathology. A LP with showed elevated WBC and PMN predominance. CSF biofire was positive for enterovirus only. CSF gram stain showed few WBC and no organisms and CSF/blood cultures showed NGTD. . Patient was admitted and supportive care was continued as there were no clinical signs of bacterial superinfection and antibiotic/antiviral coverage was not indicated. Patient received APAP for symptom control and was advised to continue Acetaminophen (Tylenol) 1000 mg TID PRN. Patient received 80 ml/hr NSS while inpatient, advised patient to continue adequate hydratation at home once discharged (at least 64 oz of water daily). Repeat CBC 09/28 was unremarkable. Phosphorous level was found to be low, patient asymptomatic, likely 2/2 aseptic meningitis. Discharged patient with KPhos PO 250 mg (2 tablets, 4 hours apart, 3 doses). Patient is aware to follow up with his PCP in one week to recheck BMP and Phosphorous levels. Discussed with Neurologist who agreed with plan. (2) Gastroesophageal reflux disease: Patient to continue home Omeprazole upon discharge. Plan FEN: regular diet, encouraged adequate hydration with at least 64 oz of water Code status: Full code Dispo: Home with family, advance activities as tolerated Total Time Total Time Spent Total Time Spent (In Minutes): See attending attestation. Discharge Plan Discharge Items Patient Disposition: Home - Self-Care Reason For Visit: ASEPTIC MENINGITIS Discharge Diagnosis: enterovirus meningitis Goals: Improvement to resolution of patient's symptoms. Adequate hydration. Proper hand hygiene and masking to avoid the spread of virus. Repletion of phosphorous. Activity: Per Instructions section Non-emergency contact: Primary Care Provider Call non-emergency contact if: you have any medication questions, your symptoms worsen and you have a fever Follow-up/Referrals: Nathan Marrero, [Primary Care Provider] - 10/04/21 11:00 am (WITH KRYSTYNA COLEY) Diet: Regular Addtl Attending Provider Instructions: Hi Mr. Martinez, You were admitted to [facility] for fever, headache, and neck pain. A lumbar puncture was performed to test a sample of your spinal fluid. The viral panel was positive for enterovirus. This is a common cold virus. The treatment is supportive care and no antibiotics are indicated. There is lower possibility of bacterial infection and with your reassuring clinical presentation (feeling better overnight without antibiotics), you will be discharged home. Please follow up with your primary care provider within 1 week of hospital discharge. You received a dose of IV steroids in the ED. You will not be sent home with any oral steroids. Hydration with fluids is recommended. A prescription for Zofran will be sent to your pharmacy at [facility]. Your phosphorus level was low most likely from the meningitis infection. 6 tabs of phosphate tablets have been sent to your pharmacy. Take 2 tabs 4 hour apart for 3 doses. Can start first dose tonight or tomorrow. Your PCP will recheck your BMP and phosphorus level in 1-2 weeks. If you have any questions or worsened symptoms, please contact your PCP. Visit the emergency room if concerning symptoms such as confusion, loss of consciousness, visual changes or severe stiff neck pain that does not improve. Pending Studies at Discharge: Yes (CSF cultures) Studies:: Final results of CSF and Blood Cultures. Stand-Alone Forms: [facility] [address], Smoking Cessation Medications and DC Order Prescriptions: New ondansetron 4 mg tablet,disintegrating 4 mg PO Q12H PRN (Reason: nausea and vomiting) 10 Days Qty: 20 0RF Phospha 250 Neutral 250 mg tablet 2 tab PO Q4H Qty: 6 0RF Continued esomeprazole magnesium [Nexium] 20 mg capsule,delayed release(DR/EC) 20 mg PO DAILY PRN (Reason: Acid Reflux) Qty: 30 5RF lorazepam [Ativan] 1 mg tablet 1 mg PO BID PRN (Reason: sleep) Qty: 20 1RF benzonatate 200 mg capsule 200 mg PO TID PRN (Reason: cough) Qty: 30 0RF tadalafil 5 mg tablet 5 mg PO DAILY ibuprofen [Advil] 200 mg Tablet 800 mg PO .Q5-6HRS PRN (Reason: Fever Or Pain) Discharge Orders: Discharge Order (Routine); Ordered 09/28/21 Ordered By: David Bernal Admission Data Admit Date/Time: 09/27/21 22:02 Attending Provider: Alvin Amaya Admit Provider: Chance Merida Primary Care Provider: Nathan Marrero Other Providers: Alvin Amaya Other Interventions: Discharge Summary Assessment (RN) Last Done: 09/28/21 15:28 Supervising Physician Co-Signing Physician Notes I also saw the patient confirmed [place] portions of the history and the physical examination. I agree with the impression and plan as noted in the resident discharge summary. 51-year-old male admitted through the emergency department yesterday with history of fever, headache rash; this in the setting of a 4-year-old daughter who was diagnosed with a coxsackie virus. The patient and his family were vacationing at which time the 4-year-old daughter developed a fever. She was seen at an acute care clinic and diagnosed with a coxsackievirus. The patient himself developed a rash from a vacation; it sounds as if the headache and fever developed either on the way home or once he had returned home. His had sent a picture of the patient's rash to a physician friend who recommended that he be seen in the emergency department. The predominant symptom which brought the patient to the emergency department was not the rash but more of a significant frontal headache. He was seen and evaluated in the emergency department. Initial work-up included blood work, CT of the head, and lumbar puncture. CSF bio fire was positive for enterovirus, negative for all else tested. Therapeutics included IV fluids, pain control, and Decadron 10 mg IV x1. Upon examination this morning, the patient feels quite better. He describes a low-grade headache but no other complaints. Exam 122/67, 63, 14, 36.9, 97% room air He is pleasant alert and oriented. No acute distress. HEENT pupils equal round reactive to light. Extraocular muscles are intact. He is able to flex his neck without limitation Heart regular rate and rhythm. No murmurs rubs or gallops are appreciated Lungs are clear with nonlabored respirations He has a flat macular papular rash over the anterior chest wall and flanks, bilaterally He is alert and oriented. Cognition without deficit. No focal neuromotor deficits are appreciated Data WBC 6.43, hemoglobin 14.4, platelet count 149 Sodium 139, potassium 3.9, BUN 11, creatinine 0.95. Phosphorus low at 1.7 CSF appearance is clear, colorless, WBC 32, RBC 0, glucose 60, protein 40.2 CSF enterovirus PCR is positive. COVID-19 serum is negative Lyme serum screen is negative Impression and plan Viral meningitis, coxsackievirus Symptomatically quite improved this morning Neurologic exam is within normal limits Stable for discharge home; signs and symptoms for return discussed May use Tylenol or ibuprofen for headache, single dose of Decadron should provide anti-inflammatory relief for several days Resident Activity Tracking Resident Involvement: Resident Care Provided Care Provided: Adult [facility] Medicine
[2021-09-28 11:21] LABS: Albumin Globulin Ratio 1.5 (0.9-2); Albumin Level 3.7 gm/dl (3.4-5.0); BUN Creatinine Ratio 11.6 (10-20); Bilirubin,Total 0.8 mg/dl (0.2-1.0); Calcium 8.8 mg/dl (8.5-10.1); Creatinine Clr Calc Pharmacy 100.2 ml/min; Est GFR (African American) 108.5 ml/min; Est GFR (Non-African American) 93.6 ml/min; Globulin 2.4 gm/dl (2.5-4.0); Magnesium 1.8 mg/dl (1.7-2.4); Phosphorus 1.7 mg/dl (2.5-4.9); Potassium 3.9 mmol/L (3.5-5.1); Total Protein 6.1 gm/dl (6.0-8.3)
[2021-09-28 11:25] LABS: Immature Granulocytes # (auto) 0.02 K/uL (0.00-0.02); Immature Granulocytes % (auto) 0.3 %; Lymphocytes # (auto) 1.01 K/uL (1.2-3.4); Lymphocytes % (auto) 15.7 %; Monocytes # (auto) 0.41 K/uL (0.24-0.82); Monocytes % (auto) 6.4 %; Neutrophils # (auto) 4.99 K/uL (1.4-6.5); Neutrophils % (auto) 77.6 %
[2021-09-30 22:56] LABS: Lyme DNA PCR CSF or Synovial Not Detected (Not Detected); Lyme DNA Source CSF
== END 2021-09-28 16:03 | disposition home or self-care (01) | DRG 76 ==
LOC: ED 13:51 → 3W 22:02